=== PATIENT | female | born 1950 ===

== ENCOUNTER 2025-01-22 11:38 | Outpatient (RCR) | payer MEDICARE, SELFPAY ==
--- NOTE | 2025-01-22 13:50 | OTOPEVDC ---
Assessment and note entered by Rogerio De La Cruz, EARL/Manav, CHT Assessment Status Evaluation Subjective Information Wheelchair/seating evaluation. Patient comes with dx of paraplegia. Onset 1979. Patient currently propels herself in a manual w/c independently. Spouse provides assist for all transfers. She has a current pressure sore on her right buttocks. Please review 12 page seating/mobility evaluation for more details. OT Clinical Summary Barbara is currently non-ambulatory. 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 She has no sensation or muscle strength below level T4. She currently uses a manual w/c for all mobility and is dependent for all transfers due to 0/5 LE strength and very limited core strength. She currently relies on her for all transfers. She also currently has a pressure sore on her right buttocks from a road trip and sitting in her van on a cushion that does not support her postural obliquities. At this time her current mobility base has wear and tear from being 9 years old. The tone in he right LE has progressed and the right foot no longer rests on the foot plate. The need for a light weight chair is necessary for the patient to be able to manage as well as for her elderly to be able to lift into their van. Her deficits and needs would not be met with appropriately fitted walker or cane due to 0/5 LE strength and poor sitting balance. A light weight, custom wheelchair is the best option for this patient and her needs . She is currently independent and safe with self- propulsion of her manual wheelchair. She has demonstrated sufficient physical and mental capabilities to maneuver a manual w/c. Plan of Care OT Services Indicated No
== END 2025-01-22 15:56 | disposition home or self-care (01) ==
LOC: ANHOT 11:38
PROVIDERS: PCP Internal Medicine Infectious Disease; Visit Provider Internal Medicine Infectious Disease
DX: G82.20 Paraplegia, unspecified (principal)
CPT/HCPCS: 97167